=== PATIENT | female | born 1975 | race Two or more races ===

== ENCOUNTER 2022-04-05 12:28 | Emergency (ER) | payer MEDICAID, OTHER ==
[~2022-04-05] VITALS: Ht 165.1 cm; Wt 124.7 kg
[2022-04-05 13:35] VITALS: BP 144/79
[2022-04-05] MEDS ORDERED: PRED20TA2 PO (14:57)
[2022-04-05] MEDS ORDERED: NAPR500T31 PO (14:57)
== END 2022-04-05 15:01 | disposition home or self-care (01) ==
LOC: ER 12:28
DX: S02.2XXA Fracture of nasal bones, initial encounter for closed fracture (principal); I10 Essential (primary) hypertension; Z90.49 Acquired absence of other specified parts of digestive tract; W22.8XXA Striking against or struck by other objects, initial encounter; Y93.89 Activity, other specified; Y92.89 Other specified places as the place of occurrence of the external cause; Y99.8 Other external cause status
CPT/HCPCS: 70160

== ENCOUNTER 2023-04-16 08:46 | Emergency (ER) | payer MEDICAID ==
[~2023-04-16] VITALS: Ht 165.1 cm; Wt 133.7 kg
[~2023-04-16 08:46] MED LIST: NAPR500T31 PO; PRED20TA2 PO
[2023-04-16 08:53] VITALS: BP 136/68
[2023-04-16] MEDS ORDERED: PRED20TA2 PO (10:10)
[2023-04-16] MEDS ORDERED: IBUP800T27 PO (10:10)
== END 2023-04-16 10:55 | disposition home or self-care (01) ==
LOC: ER 08:46
DX: G56.03 Carpal tunnel syndrome, bilateral upper limbs (principal); I10 Essential (primary) hypertension; Z90.49 Acquired absence of other specified parts of digestive tract; Z98.890 Other specified postprocedural states

== ENCOUNTER 2023-11-25 13:17 | Emergency (ER) | payer MEDICAID ==
[~2023-11-25] VITALS: Ht 165.1 cm; Wt 138.8 kg
[~2023-11-25 13:17] MED LIST changes: +IBUP-1456 PO; +NAPR-746 PO; -NAPR500T31 PO
[2023-11-25] MEDS ORDERED: KETOROLAC TROMETH 60MG/2ML VIAL IM ONE (16:00)
[2023-11-25 16:08] VITALS: BP 161/70; PULSE 78; RESP 16; TEMP 98.8; O2SAT 97
[2023-11-25] MEDS ORDERED: DICL1GEL59 EX (17:21)
[2023-11-25] MEDS ORDERED: MELO-335 PO (17:21)
[2023-11-25] MEDS ORDERED: ACET500T58 PO (17:21)
== END 2023-11-25 17:21 | disposition home or self-care (01) ==
LOC: ER 13:17
DX: M23.8X2 Other internal derangements of left knee (principal); I10 Essential (primary) hypertension; Z98.890 Other specified postprocedural states; Z79.899 Other long term (current) drug therapy
CPT/HCPCS: 73562; 96372; 99283; J1885

== ENCOUNTER 2024-11-19 12:54 | Emergency (ER) | payer MEDICAID ==
[~2024-11-19] VITALS: Ht 165.1 cm; Wt 141.9 kg
[~2024-11-19 12:54] MED LIST changes: +ACET500T58 PO; +DICL1GEL59 EX; +MELO15TA29 PO
--- NOTE | 2024-11-19 13:44 | ED.PDOC ---
General HPI Comments 49 y.o female presents to the ED for a chief complaint of right sided flank pain that started one week ago. Patient describes pain as sharp, constant, non radiating and worsens with movement, especially twisting. Patient denies any hematuria, dysuria, fever, chills, abdominal pain, nausea, vomiting, or history of kidney and/or kidney disease. Chief Complaint: Flank Pain Time Seen by MD: 13:16 Primary Care Provider: WILL Latham notes: Nurses Notes, Medications, Allergies Allergies: Coded Allergies: NO KNOWN ALLERGIES (Unverified , 04/05/22) Home Meds Active Scripts Diclofenac Sodium (Topical) (Voltaren Arthritis Pain) 1 % Gel, 1 % EX QID for 30 Days, #50 GRAMS 0 Refills Prov:EMILEE JACKSON CDL DEDICATED TRUCK DRIVER 11/25/23 Acetaminophen (Acetaminophen) 500 Mg Tab, 1000 MG PO TIDP PRN for 30 Days, #180 TAB 0 Refills Prov:EMILEE JACKSON CDL DEDICATED TRUCK DRIVER 11/25/23 Meloxicam (Meloxicam) 15 Mg Tab, 15 MG PO DAILY for 30 Days, #30 TAB 0 Refills Prov:MEILEE JACKSON CDL DEDICATED TRUCK DRIVER 11/25/23 Prednisone (Prednisone) 20 Mg Tab, 40 MG PO DAILY, #20 MG Prov:RJ BARCENAS 04/16/23 Ibuprofen (Ibuprofen) 800 Mg Tab, 1 TAB PO TID, #30 TAB Prov:RJ BARCENAS 04/16/23 Naproxen (Naproxen) 500 Mg Tab, 500 MG PO BID, #30 TAB Prov:RJ BARCENAS 04/05/22 Prednisone (Prednisone) 20 Mg Tab, 60 MG PO DAILY for 5 Days, #15 MG Prov:RJ BARCENAS 04/05/22 Information Source: Patient Mode of Arrival: Ambulatory Severity: Moderate Timing: Weeks (1) Duration: Since onset Onset: Spontaneous Symptoms: None History of: None Location: (R) Flank Modifying factors: None associated signs and symptoms: Flank Pain Past Medical History PAST MEDICAL HISTORY: HTN Surgical History: Cholecystectomy, SPORTS INFORMATION DIRECTOR History: No Pertinent SPORTS INFORMATION DIRECTOR History Family History Family History: Reviewed,noncontributory to illness Social History Smoker: Non-Smoker Alcohol: Denies ETOH Use Drugs: Denies Drug Use Lives In: Home Constitutional: denies: chills, diaphoresis, fatigue, fever, malaise, sweats, weakness, others EENTM: denies: blurred vision, double vision, ear bleeding, ear discharge, ear drainage, ear pain, ear ringing, eye pain, eye redness, hearing loss, mouth pain, mouth swelling, nasal discharge, nose bleeding, nose congestion, nose pain, photophobia, tearing, throat pain, throat swelling, voice changes, others Respiratory: denies: cough, hemoptysis, orthopnea, SOB at rest, shortness of breath, SOB with excertion, stridor, wheezing, others Cardiovascular: denies: chest pain, dizzy spells, diaphoresis, Dyspnea on exertion, edema, irregular heart beat, left arm pain, lightheadedness, palpitations, PND, syncope, others Gastrointestinal: denies: abdomen distended, abdominal pain, blood streaked bowels, constipated, diarrhea, dysphagia, difficulty swallowing, hematemesis, melena, nausea, poor appetite, poor fluid intake, rectal bleeding, rectal pain, vomiting, others Genitourinary: reports: flank pain; denies: abnormal vagina bleeding, burning, dyspareunia, dysuria, frequency, hematuria, incontinence, pain, , vagina discharge, urgency, others Neurological: denies: dizziness, fainting, headache, left sided numbness, left sided weakness, numbness, paresthesia, pre-existing deficit, right sided numb ness, right sided weakness, seizure, speech problems, tingling, tremors, weakness, others Musculoskeletal: denies: back pain, gout, joint pain, joint swelling, muscle pain, muscle stiffness, neck pain, others Integumetry: denies: bruises, change in color, change in hair/nails, dryness, laceration, lesions, lumps, rash, wounds, others Allergic/Immunocompromised: denies: Difficulty Healing, Frequent Infections, Hives, Itching, others Hematologic/Lymphatic: denies: anemia, blood clots, easy bleeding, easy bruising, swollen glands, others Endocrine: denies: excessive hunger, excessive sweating, excessive thirst, excessive urination, flushing, intolerance to cold, intolerance to heat, unexplained weight gain, unexplained weight loss, others Psychiatric: denies: anxiety, bipolar disorder, depression, hopeless, panic disorder, schizophrenia, sleepless, suicidal, others All Other Systems: Reviewed and Negative Physical Exam General Appearance: No Apparent Distress, Normal HEENT: Normal ENT Inspection, Pharynx Normal, TMs Normal Neck: Full Range of Motion, Non-Tender, Normal, Normal Inspection Respiratory: Chest Non-Tender, Lungs Clear, No Accessory Muscle Use, No Respiratory Distress, Normal Breath Sounds Cardiovascular: No Edema, No JVD, No Murmur, No Gallop, Normal Peripheral Pulses, Regular Rate/Rhythm Breast Exam: Deferred Gastrointestinal: No Organomegaly, Non Tender, No Pulsatile Mass, Normal Bowel Sounds, Soft Genitalia: Deferred Pelvic: Deferred Rectal: Deferred Extremities: No calf tenderness, Normal capillary refill, Normal inspection, Normal range of motion, Non-tender, No pedal edema Musculoskeletal : Location: Right Extremity Location: Other (flank ) Apperance: Tenderness: Moderate Neurologic: Alert, bioinformatics assistant II-XII nml as Tested, No Motor Deficits, Normal Affect, Normal Mood, No Sensory Deficits Cerebellar Function: Normal Reflexes: Normal Skin: Dry, Normal Color, Warm Lymphatic: No Adenopathy Was a procedure done? Was a procedure done?: No Differential Diagnosis Kidney stone (Female): Musculoskeletal pain, Ovarian torsion, Pancreatitis, Pyelonephritis, Renal failure, Strain, Urolithiasis Urinary Problem (Female): Impaction, PID, Pyelonephritis, Urolithiasis, UTI, Vaginitis X-Ray, Labs, Meds, VS Vital Signs Date Time Temp Pulse Resp B/P (MAP) Pulse Ox O2 Delivery O2 Flow Rate FiO2 11/19/24 13:30 98.4 80 18 150/62 (91) 96 Lab Test 11/19/24 14:26 Range/Units White Blood Count 11.9 H 4.4-10.8 10^3/uL Red Blood Count 4.77 4.0-5.20 10^6/uL Hemoglobin 12.2 12.2-16.2 g/dL Hematocrit 37.5 36.0-46.0 % Mean Corpuscular Volume 78.6 L 80.0-100.0 fL Mean Corpuscular Hemoglobin 25.6 L 28.0-32.0 pg Mean Corpuscular Hemoglobin Concent 32.6 32.0-36.0 g/dL Red Cell Distribution Width 15.0 H 11.8-14.3 % Platelet Count 329 140-450 10^3/uL Mean Platelet Volume 7.4 6.9-10.8 fL Neutrophils (%) (Auto) 76.2 37.0-80.0 % Lymphocytes (%) (Auto) 17.5 10.0-50.0 % Monocytes (%) (Auto) 3.3 0.0-12.0 % Eosinophils (%) (Auto) 2.3 0.0-7.0 % Basophils (%) (Auto) 0.7 0.0-2.0 % Neutrophils # (Auto) 9.1 H 1.6-8.6 10 ^3/uL Lymphocytes # (Auto) 2.1 0.4-5.4 10 ^3/uL Monocytes # (Auto) 0.4 0-1.3 10 ^3/uL Eosinophils # (Auto) 0.3 0-0.8 10 ^3/uL Basophils # (Auto) 0.1 0-0.2 10 ^3/uL Nucleated Red Blood Cells 0.0 % Prothrombin Time 10.3 9.3-11.8 sec Prothrombin Time INR 0.97 0.9-1.15 Activated Partial Thromboplast Time 26.9 24.5-34.5 SEC Sodium Level 140 136-145 mmol/L Potassium Level 3.9 3.5-5.1 mmol/L Chloride Level 105 98-107 mmol/L Carbon Dioxide Level 28 20-31 mmol/L Anion Gap 7 5-15 Blood Urea Nitrogen 7 L 9-23 mg/dL Creatinine 0.77 0.550-1.02 mg/dL Glomerular Filtration Rate Calc 96 >90 mL/min BUN/Creatinine Ratio 9.1 L 10.0-20.0 Serum Glucose 95 74-106 mg/dL Lactic Acid Level 1.1 0.4-2.0 mmol/L Calcium Level 9.8 8.7-10.4 mg/dL Total Bilirubin 0.3 0.2-1.0 mg/dL Aspartate Amino Transferase (AST) 14 13-40 U/L Alanine Aminotransferase (ALT) 22 7-40 U/L Alkaline Phosphatase 119 H 46-116 U/L Total Protein 7.5 5.7-8.2 g/dL Albumin 4.4 3.2-4.8 g/dL Beta HCG, Quantitative 2.0 1.5-4.2 mIU/mL X-Ray, Labs, Meds, VS Comment This 49-year-old female presents secondary to a few day history of right lower back pain radiates laterally. She has no other complaints of dysuria, urine frequency, fever, chills, sweats, nausea or vomiting. Her periods benign. My review of the CT shows copious amounts of stool throughout the colon. This may be the cause of her discomfort. I will discharge the patient home with milk of magnesia. She was asked to very well hydrated to keep her urine clear. She should he had high-fiber diet. Time of 1ST Reevaluation: 13:43 Reevaluation 1ST: Unchanged Time of 2ND Reevaluation: 16:18 Patient Education/Counseling: Diagnosis, Treatment Family Education/Counseling: No Family Present Additional Information I reviewed the following notes from patient's past medical encounters: 11/18/24- intractable abdominal pain The following tests were ordered, and results were reviewed by me: (Labs, XY, EKG): CMP, CBC, Lactic acid, UA, blood cultures, PtPTT, Beta HCG Additional Information was gathered from interviewing the following independent historians: (Family, Other Providers, EMT) I reviewed and agreed with the following test results read by other providers: (X-Ray, CT, US): CT I discussed treatment and results with medical personnel and: (Consultants, Family): None Departure 1 Departure Time of Disposition: 16:19 Impression: Primary Impression: Flank pain Additional Impression: Constipation Disposition: 01 HOME / SELF CARE / HOMELESS Condition: Good e-Prescriptions Magnesium Hydroxide (Milk of Magnesia 400 mg/5Ml) 1 Marlen Marlen 1 MARLEN PO BID PRN for 10 Days, #100 ML Prov: LAMBERTO HERNANDEZ MD 11/19/24 Critical Care Note Critical Care Time?: No Stability Stability form required: No I personally scribed for LAMBERTO HERNANDEZ MD ([email or web address]) on 11/19/24 at 13:44. Electronically submitted by Kassandra Mckeon ([employer]). I personally scribed for LAMBERTO HERNANDEZ MD ([email or web address]) on 11/19/24 at 15:17. Electronically submitted by Kassandra Mckeon ([employer]). LAMBERTO HERNANDEZ MD Nov 19, 2024 13:44
[2024-11-19 14:41] LABS: Eosinophils # (auto) 0.3 10 ^3/uL (0-0.8); Eosinophils % (auto) 2.3 % (0.0-7.0); Hematocrit 37.5 % (36.0-46.0); Hemoglobin 12.2 g/dL (12.2-16.2); Mean Corpuscular Hemoglobin 25.6 pg (28.0-32.0); Mean Corpuscular Hgb Conc. 32.6 g/dL (32.0-36.0)
[2024-11-19 14:42] LABS: Basophils # (auto) 0.1 10 ^3/uL (0-0.2); Basophils % (auto) 0.7 % (0.0-2.0); Lymphocytes # (auto) 2.1 10 ^3/uL (0.4-5.4); Lymphocytes % (auto) 17.5 % (10.0-50.0); Mean Corpuscular Volume 78.6 fL (80.0-100.0); Monocytes # (auto) 0.4 10 ^3/uL (0-1.3); Monocytes % (auto) 3.3 % (0.0-12.0); Neutrophils # (auto) 9.1 10 ^3/uL (1.6-8.6); Neutrophils % (auto) 76.2 % (37.0-80.0); Platelet Count (auto) 329 10^3/uL (140-450); Red Blood Cells 4.77 10^6/uL (4.0-5.20); White Blood Cell 11.9 10^3/uL (4.4-10.8)
[2024-11-19 15:06] LABS: INR 0.97 (0.9-1.15); Partial Thromboplastin Time 26.9 SEC (24.5-34.5); Prothrombin Time 10.3 sec (9.3-11.8)
[2024-11-19 15:14] LABS: Alanine Aminotransferase 22 U/L (7-40); Anion Gap 7 (5-15); BUN/Creatinine Ratio 9.1 (10.0-20.0); Calcium 9.8 mg/dL (8.7-10.4); Carbon Dioxide 28 mmol/L (20-31); Chloride 105 mmol/L (98-107); Glucose 95 mg/dL (74-106); Potassium 3.9 mmol/L (3.5-5.1); Sodium 140 mmol/L (136-145)
[2024-11-19 15:15] LABS: Albumin 4.4 g/dL (3.2-4.8); Aspartate Aminotransferase 14 U/L (13-40); Total Protein 7.5 g/dL (5.7-8.2)
[2024-11-19 15:16] LABS: Alkaline Phosphatase 119 U/L (46-116); Bilirubin, Total 0.3 mg/dL (0.2-1.0); Blood Urea Nitrogen 7 mg/dL (9-23)
--- NOTE | 2024-11-19 15:28 | DVH ---
Exam: CT CT AB PEL WO CON-NO ORAL OR IV History: right flank pain pyelo Comparison Study: 05/11/2024 TECHNIQUE: Multidetector CT of the abdomen was performed from lung bases to pubic symphysis. Imaging was performed without IV contrast. Axial, coronal and sagittal multiplanar reformats were obtained fr om the axial data set by the technologist. Radiation Dose Information: CT Dose: CTDI volume is 27.88 mGy. Dose-length product is 1546.44 mGy*cm FINDINGS: Evaluation of solid organs is limited due to lack of intravenous contrast use. Findings: Lung Bases: No acute or significant lung base finding. Normal heart size. No pleural or pericardial effusion. Liver: The liver is normal in size. No focal lesions. Gallbladder and Biliary Tree: Unremarkable Spleen: Unremarkable Pancreas: The pancreas is grossly normal in appearance. Adrenal Glands: Unremarkable Kidneys: Kidneys are grossly normal without calculi or hydronephrosis. Bladder: Grossly unremarkable for degree of distention. Bowel: The stomach is grossly normal in appearance. Small bowel and colon are normal in caliber and d istribution. The appendix is not visualized; however, no secondary findings of acute appendicitis id entified. Ascites: Absent Lymphadenopathy: No mesenteric, retroperitoneal or periportal lymphadenopathy. Abdominal Wall and Mesentery: Unremarkable. Vasculature: The visualized abdominal aorta is normal in size and caliber. Evaluation of abdominal a nd pelvic vessels is limited due to lack of intravenous contrast. Pelvic Organs: Unremarkable Musculoskeletal: No aggressive focal bony lesions, acute fractures or dislocation. Soft tissues: Unremarkable IMPRESSION: 1. No nephrolithiasis or hydronephrosis bilaterally. 2. No ureteral dilatation. 3. No Chloe renal collections bilaterally. 4. Gallbladder has been surgically removed. 5. No findings of bowel obstruction. Radiation optimization: All CT scans at this facility use at least one of these dose optimization te chniques: automated exposure control mA and/or kV adjustment per patient size (includes targeted exa ms where dose is matched to clinical indication) or iterative reconstruction.
[2024-11-19] MEDS ORDERED: MAGNSUS48 PO (16:20)
[2024-11-19 16:41] VITALS: BP 160/85; PULSE 72; RESP 16; TEMP 98; O2SAT 97
[2024-11-19 17:11] LABS: Urine Bacteria FEW /hpf (None Seen); Urine Blood Negative /uL (Negative); Urine Clarity Clear (Clear); Urine Color Light-Yellow (Yellow); Urine Mucus FEW (None Seen); Urine Protein, UAD Negative (Negative); Urine Specific Gravity 1.021 (1.001-1.035); Urine Urobilinogen Normal (Negative); Urine WBC 1 /hpf (0 - 5)
== END 2024-11-19 16:44 | disposition home or self-care (01) ==
LOC: ER 12:54
DX: K59.00 Constipation, unspecified (principal); R10.2 Pelvic and perineal pain; I10 Essential (primary) hypertension; Z79.899 Other long term (current) drug therapy; Z90.49 Acquired absence of other specified parts of digestive tract; Z98.890 Other specified postprocedural states
CPT/HCPCS: 36415; 74176; 80053; 81001; 83605; 84702; 85025; 85610; 85730; 87040; 87086

== ENCOUNTER 2025-03-25 10:43 | Emergency (ER) | payer MEDICAID ==
[~2025-03-25] VITALS: Ht 165.1 cm; Wt 145.1 kg
[~2025-03-25 10:43] MED LIST changes: +MAGNSUS48 PO
--- NOTE | 2025-03-25 11:51 | DVH ---
CLINICAL INDICATION: PAIN, NO INJURY TECHNIQUE: XY L KNEE 3V XRAY Comparison: XY L KNEE 3V XRAY on DOS: 11/25/23 FINDINGS/IMPRESSION: : There is no evidence of acute fracture or dislocation. Soft tissues are unremarkable.
[2025-03-25 11:55] VITALS: BP 144/57; PULSE 92; RESP 18; TEMP 98.8; O2SAT 97
--- NOTE | 2025-03-25 12:10 | ED.PDOC ---
Musculoskeletal HPI Comments A 49 YEAR OLD FEMALE PRESENTS TO THE ED WITH COMPLAINT OF LEFT KNEE PAIN. PATIENT STATES SHE HAS BEEN EXPERIENCING LEFT KNEE PAIN THAT IS WORSE WITH MOVEMENT FOR THE PAST 5 DAYS. PATIENT NOTES SHE HAS A JOB WHERE SHE WALKS EVERY DAY. PATIENT DENIES FEVER, CHILLS, SHORTNESS OF BREATH, CHEST PAIN, ABDOMINAL PAIN, NAUSEA, VOMITING, HEADACHE, OR OTHER COMPLAINTS. NO OTHER SYMPTOMS OR MODIFYING FACTORS AT THIS TIME. PATIENT IS ALERT, ORIENTED X 4, AND HAS STEADY GAIT. Chief Complaint: Lower Extremity Time Seen by MD: 11:18 Primary Care Provider: WILL Reviewed Notes: Nurses Notes, Medications, Allergies Allergies: Coded Allergies: NO KNOWN ALLERGIES (Unverified , 04/05/22) Home Meds Active Scripts Ibuprofen (Ibuprofen) 800 Mg Tab, 1 TAB PO TID, #30 TAB Prov:RJ BARCENAS 03/25/25 Magnesium Hydroxide (Milk of Magnesia 400 mg/5Ml) 1 Marlen Marlen, 1 MARLEN PO BID PRN for 10 Days, #100 ML Prov:LAMBERTO HERNANDEZ MD 11/19/24 Diclofenac Sodium (Topical) (Voltaren Arthritis Pain) 1 % Gel, 1 % EX QID for 30 Days, #50 GRAMS 0 Refills Prov:EMILEE JACKSON NP 11/25/23 Acetaminophen (Acetaminophen) 500 Mg Tab, 1000 MG PO TIDP PRN for 30 Days, #180 TAB 0 Refills Prov:EMILEE JACKSON NP 11/25/23 Meloxicam (Meloxicam) 15 Mg Tab, 15 MG PO DAILY for 30 Days, #30 TAB 0 Refills Prov:EMILEE JACKSON NP 11/25/23 Prednisone (Prednisone) 20 Mg Tab, 40 MG PO DAILY, #20 MG Prov:RJ BARCENAS 04/16/23 Ibuprofen (Ibuprofen) 800 Mg Tab, 1 TAB PO TID, #30 TAB Prov:RJ BARCENAS 04/16/23 Naproxen (Naproxen) 500 Mg Tab, 500 MG PO BID, #30 TAB Prov:RJ BARCENAS 04/05/22 Prednisone (Prednisone) 20 Mg Tab, 60 MG PO DAILY for 5 Days, #15 MG Prov:RJ BARCENAS 04/05/22 Information Source: Patient Mode of Arrival: Ambulatory Location: Left Extremity Location: Knee Timing: Days Prehospital treatment: None Severity: Moderate Able to Move Extremity: Yes Bear Weight: Fully Pain: Moderate Mechanism: Blunt Trauma, Spontaneous Circumstances: Spontaneous Onset of Symptoms: Spontaneous Symptoms: Pain DVT Risk Factors: NONE Last Tetanus: Unknown Associated signs and symptoms: Knee pain Past Medical History PAST MEDICAL HISTORY: HTN Surgical History: Cholecystectomy, ANIMAL DAYCARE PROVIDER History: No Pertinent ANIMAL DAYCARE PROVIDER History Family History Family History: Reviewed,noncontributory to illness Social History Smoker: Non-Smoker Alcohol: Denies ETOH Use Drugs: Denies Drug Use Lives In: Home Constitutional: denies: chills, diaphoresis, fatigue, fever, malaise, sweats, weakness, others EENTM: denies: blurred vision, double vision, ear bleeding, ear discharge, ear drainage, ear pain, ear ringing, eye pain, eye redness, hearing loss, mouth pain, mouth swelling, nasal discharge, nose bleeding, nose congestion, nose pain, photophobia, tearing, throat pain, throat swelling, voice changes, others Respiratory: denies: cough, hemoptysis, orthopnea, SOB at rest, shortness of breath, SOB with excertion, stridor, wheezing, others Cardiovascular: denies: chest pain, dizzy spells, diaphoresis, Dyspnea on exertion, edema, irregular heart beat, left arm pain, lightheadedness, palpitations, PND, syncope, others Gastrointestinal: denies: abdomen distended, abdominal pain, blood streaked bowels, constipated, diarrhea, dysphagia, difficulty swallowing, hematemesis, melena, nausea, poor appetite, poor fluid intake, rectal bleeding, rectal pain, vomiting, others Genitourinary: denies: abnormal vagina bleeding, burning, dyspareunia, dysuria, flank pain, frequency, hematuria, incontinence, pain, , vagina discharge, urgency, others Neurological: denies: dizziness, fainting, headache, left sided numbness, left sided weakness, numbness, paresthesia, pre-existing deficit, right sided numbness, right sided weakness, seizure, speech problems, tingling, tremors, weakness, others Musculoskeletal: reports: joint pain, joint swelling, others (LEFT KNEE PAIN); denies: back pain, gout, muscle pain, muscle stiffness, neck pain Integumetry: denies: bruises, change in color, change in hair/nails, dryness, laceration, lesions, lumps, rash, wounds, others Allergic/Immunocompromised: denies: Difficulty Healing, Frequent Infections, Hives, Itching, others Hematologic/Lymphatic: denies: anemia, blood clots, easy bleeding, easy bruising, swollen glands, others Endocrine: denies: excessive hunger, excessive sweating, excessive thirst, excessive urination, flushing, intolerance to cold, intolerance to heat, unexplained weight gain, unexplained weight loss, others Psychiatric: denies: anxiety, bipolar disorder, depression, hopeless, panic disorder, schizophrenia, sleepless, suicidal, others All Other Systems: Reviewed and Negative Physical Exam General Appearance: No Apparent Distress, Obese HEENT: Normal ENT Inspection, PERRL/EOMI, Pharynx Normal, TMs Normal Neck: Full Range of Motion, Non-Tender, Normal, Normal Inspection Respiratory: Chest Non-Tender, Lungs Clear, No Accessory Muscle Use, No Respiratory Distress, Normal Breath Sounds Cardiovascular: No Edema, No JVD, No Murmur, No Gallop, Normal Peripheral Pulses, Regular Rate/Rhythm Breast Exam: Deferred Gastrointestinal: No Organomegaly, Non Tender, No Pulsatile Mass, Normal Bowel Sounds, Soft Genitalia: Deferred Pelvic: Deferred Rectal: Deferred Extremities: No calf tenderness, Normal capillary refill, Normal range of motion, No pedal edema, Tender (AND MILD SWELLING ON LEFT KNEE, NO BONY TENDERNESS AND DEFORMITY, NO REDNESS AND DEFORMITY. ) Musculoskeletal : Apperance: Normal Neurologic: Alert, vegetable loader machine operator II-XII nml as Tested, No Motor Deficits, Normal Affect, Normal Mood, No Sensory Deficits Cerebellar Function: Normal Reflexes: Normal Skin: Dry, Normal Color, Warm Peripheral Pulses: 2+ carotid (R), 2+ carotid (L), 2+ dorsalis pedis (R), 2+ dorsalis pedis (L) Lymphatic: No Adenopathy Was a procedure done? Was a procedure done?: No Differential Diagnosis EXT Differential Diagnosis: Sprain, DJD, Strain, Arthritis, Bursitis X-Ray, Labs, Meds, VS Vital Signs Date Time Temp Pulse Resp B/P (MAP) Pulse Ox O2 Delivery O2 Flow Rate FiO2 03/25/25 11:55 92 18 97 Room Air 03/25/25 11:55 98.8 92 17 144/57 (86) 97 98.8 03/25/25 10:58 98.8 92 18 144/57 86 97 98.8 Current Medications Medications (Trade) Dose Ordered Sig/Teetee Route Start Time Stop Time Status Last Admin Ketorolac Tromethamine (Toradol Injection) 60 mg ONCE ONCE IM 03/25/25 12:15 03/25/25 12:16 DC 03/25/25 12:17 CLINICAL INDICATION: PAIN, NO INJURY TECHNIQUE: XY L KNEE 3V XRAY Comparison: XY L KNEE 3V XRAY on DOS: 11/25/23 FINDINGS/IMPRESSION: : There is no evidence of acute fracture or dislocation. Soft tissues are unremarkable. ATED BY: JOVAN MCPHERSON MD DICTATED DATE/TIME: 03/25/25 1148 SIGNED BY: JOVAN MCPHERSON MD SIGNED DATE/TIME: 03/25/25 1148 CC: X-Ray, Labs, Meds, VS Comment EXTERNAL MEDICAL RECORDS REVIEWED: [NONE] INDEPENDENT HISTORIANS: [NONE] SOCIAL DETERMINANTS OF HEALTH: [NONE] LABS ORDERED: NONE REVIEWED AND INTERPRETED RESULTS: NONE IMAGING ORDERED: XR KNEE LT TREATMENTS ORDERED: TORADOL 60MG IM PROCEDURES PERFORMED: NONE CRITICAL CARE TIME: NONE I HAVE DISCUSSED THE PATIENT WITH THE ATTENDING PHYSICIAN DR. ROSAS AND HE AGREES WITH THE PATIENT'S PLAN OF CARE AND DISPOSITION. BASED ON HISTORY OF PRESENT ILLNESS, AND PHYSICAL EXAM, PATIENT WILL BE DISCHARGED HOME. DISCUSSED PLAN FOR DISCHARGE HOME WITH RX [IBUPROFEN 800 MG]. MEDICATION WARNINGS GIVEN. SHARED DECISION MAKING: PATIENT INSTRUCTED TO FOLLOW UP WITH PRIMARY CARE PROVIDER IN 1-2 DAYS FOR RE-EVALUATION OF SYMPTOMS. PATIENT VERBALIZES UNDERSTANDING TO RETURN TO ED FOR NEW OR WORSENING SYMPTOMS OR IF FOLLOW UP WITH PCP CANNOT BE OBTAINED. PATIENT FEELS COMFORTABLE GOING HOME AT THIS TIME. ALL QUESTIONS ADDRESSED AT TIME OF DISCHARGE. Images Reviewed?: Images reviewed and evaluated by me Time of 1ST Reevaluation: 12:28 Reevaluation 1ST: Improved Patient Education/Counseling: Diagnosis, Treatment, Need For Follow Up Family Education/Counseling: Diagnosis, Treatment, Need For Follow Up Medical Screening: No EMC Exist At This Time Departure 1 Departure Time of Disposition: 12:28 Impression: Primary Impression: Internal derangement of left knee Additional Impression: Morbid obesity Disposition: 01 HOME / SELF CARE / HOMELESS Condition: Stable Additional Instructions: FOLLOW-UP WITH PCP IN 1 TO 2 DAYS FOR MRI STUDY. TAKE MEDICATIONS PRESCRIBED. RETURN TO ED FOR ANY NEW OR WORSENING SYMPTOMS. e-Prescriptions Ibuprofen (Ibuprofen) 800 Mg Tab 1 TAB PO TID, #30 TAB Prov: RJ BARCENAS 03/25/25 Discharged With: Self Critical Care Note Critical Care Time?: No Stability Stability form required: No I personally scribed for RJ BARCENAS ([email or web address]) on 03/25/25 at 12:10. Electronically submitted by Carlos Thrasher ([email or web address]). RJ BARCENAS March 25, 2025 12:10
[2025-03-25] MEDS: KETOROLAC TROMETH 60MG/2ML VIAL IM ONE (12:17)
== END 2025-03-25 12:44 | disposition home or self-care (01) ==
LOC: ER 10:43
DX: M23.92 Unspecified internal derangement of left knee (principal); E66.01 Morbid (severe) obesity due to excess calories; I10 Essential (primary) hypertension; Z79.899 Other long term (current) drug therapy; Z90.49 Acquired absence of other specified parts of digestive tract; Z98.890 Other specified postprocedural states
CPT/HCPCS: 73562; 96372; 99283; J1885

== ENCOUNTER 2025-08-08 09:01 | Emergency (ER) | payer MEDICAID ==
[~2025-08-08] VITALS: Ht 165.1 cm; Wt 143.6 kg
[2025-08-08 09:07] VITALS: BP 117/62; PULSE 72; RESP 18; TEMP 98.2; O2SAT 95
--- NOTE | 2025-08-08 09:30 | ED.PDOC ---
Musculoskeletal HPI Comments 49-year-old female presents to the ER with the with no prior MHx associated with a chief complaint of LE. Patient reports on having left knee pain which worsens with a walking or bending. Denies any trauma or injury to the area at the moment. Chief Complaint: Lower Extremity Time Seen by MD: 09:30 Primary Care Provider: WILL Latham Notes: Nurses Notes, Medications, Allergies Allergies: Coded Allergies: NO KNOWN ALLERGIES (Unverified , 04/05/22) Home Meds Active Scripts Ibuprofen (Ibuprofen) 800 Mg Tab, 1 TAB PO TID, #30 TAB Prov:RJ BARCENAS 03/25/25 Magnesium Hydroxide (Milk of Magnesia 400 mg/5Ml) 1 Marlen Marlen, 1 MARLEN PO BID PRN for 10 Days, #100 ML Prov:LAMBERTO HERNANDEZ MD 11/19/24 Diclofenac Sodium (Topical) (Voltaren Arthritis Pain) 1 % Gel, 1 % EX QID for 30 Days, #50 GRAMS 0 Refills Prov:EMILEE JACKSON SCREW MACHINE OPERATOR 11/25/23 Acetaminophen (Acetaminophen) 500 Mg Tab, 1000 MG PO TIDP PRN for 30 Days, #180 TAB 0 Refills Prov:EMILEE JACKSON SCREW MACHINE OPERATOR 11/25/23 Meloxicam (Meloxicam) 15 Mg Tab, 15 MG PO DAILY for 30 Days, #30 TAB 0 Refills Prov:EMILEE JACKSON NP 11/25/23 Prednisone (Prednisone) 20 Mg Tab, 40 MG PO DAILY, #20 MG Prov:RJ BARCENAS 04/16/23 Ibuprofen (Ibuprofen) 800 Mg Tab, 1 TAB PO TID, #30 TAB Prov:RJ BARCENAS 04/16/23 Naproxen (Naproxen) 500 Mg Tab, 500 MG PO BID, #30 TAB Prov:RJ BARCENAS 04/05/22 Prednisone (Prednisone) 20 Mg Tab, 60 MG PO DAILY for 5 Days, #15 MG Prov:RJ BARCENAS 04/05/22 Information Source: Patient Mode of Arrival: Ambulatory Location: Left Extremity Location: Knee Timing: Came on: Gradually Prehospital treatment: None Severity: Moderate Able to Move Extremity: No Bear Weight: Limited Pain: Moderate Hand Dominance: Right Mechanism: Spontaneous Circumstances: Spontaneous Onset of Symptoms: Spontaneous Symptoms: Pain DVT Risk Factors: NONE Associated signs and symptoms: Knee pain Past Medical History PAST MEDICAL HISTORY: HTN Surgical History: Cholecystectomy, [employer]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 History Family History Family History: Reviewed,noncontributory to illness, Unknown Social History Smoker: Non-Smoker Alcohol: Denies ETOH Use Drugs: Denies Drug Use Lives In: Home Constitutional: denies: chills, diaphoresis, fatigue, fever, malaise, sweats, weakness, others EENTM: denies: blurred vision, double vision, ear bleeding, ear discharge, ear drainage, ear pain, ear ringing, eye pain, eye redness, hearing loss, mouth pain, mouth swelling, nasal discharge, nose bleeding, nose congestion, nose p ain, photophobia, tearing, throat pain, throat swelling, voice changes, others Respiratory: denies: cough, hemoptysis, orthopnea, SOB at rest, shortness of breath, SOB with excertion, stridor, wheezing, others Cardiovascular: denies: chest pain, dizzy spells, diaphoresis, Dyspnea on exertion, edema, irregular heart beat, left arm pain, lightheadedness, palpitations, PND, syncope, others Gastrointestinal: denies: abdomen distended, abdominal pain, blood streaked bowels, constipated, diarrhea, dysphagia, difficulty swallowing, hematemesis, melena, nausea, poor appetite, poor fluid intake, rectal bleeding, rectal pain, vomiting, others Genitourinary: denies: abnormal vagina bleeding, burning, dyspareunia, dysuria, flank pain, frequency, hematuria, incontinence, pain, , vagina discharge, urgency, others Neurological: denies: dizziness, fainting, headache, left sided numbness, left sided weakness, numbness, paresthesia, pre-existing deficit, right sided numbness, right sided weakness, seizure, speech problems, tingling, tremors, weakness, others Musculoskeletal: reports: others (Left knee pain); denies: back pain, gout, joint pain, joint swelling, muscle pain, muscle stiffness, neck pain Integumetry: denies: bruises, change in color, change in hair/nails, dryness, laceration, lesions, lumps, rash, wounds, others Allergic/Immunocompromised: denies: Difficulty Healing, Frequent Infections, Hives, Itching, others Hematologic/Lymphatic: denies: anemia, blood clots, easy bleeding, easy bruising, swollen glands, others Endocrine: denies: excessive hunger, excessive sweating, excessive thirst, excessive urination, flushing, intolerance to cold, intolerance to heat, unexplained weight gain, unexplained weight loss, others Psychiatric: denies: anxiety, bipolar disorder, depression, hopeless, panic disorder, schizophrenia, sleepless, suicidal, others All Other Systems: Reviewed and Negative Physical Exam General Appearance: No Apparent Distress, Normal HEENT: Normal ENT Inspection, Pharynx Normal, TMs Normal Neck: Full Range of Motion, Non-Tender, Normal, Normal Inspection Respiratory: Chest Non-Tender, Lungs Clear, No Accessory Muscle Use, No Respiratory Distress, Normal Breath Sounds Cardiovascular: No Edema, No JVD, No Murmur, No Gallop, Normal Peripheral Pulses, Regular Rate/Rhythm Breast Exam: Deferred Gastrointestinal: No Organomegaly, Non Tender, No Pulsatile Mass, Normal Bowel Sounds, Soft Genitalia: Deferred Pelvic: Deferred Rectal: Deferred Extremities: No calf tenderness, Normal capillary refill, Normal inspection, Normal range of motion, Non-tender, No pedal edema Musculoskeletal : Apperance: Normal Neurologic: Alert, ultrasonic seaming machine operator II-XII nml as Tested, No Motor Deficits, Normal Affect, Normal Mood, No Sensory Deficits Cerebellar Function: Normal Reflexes: Normal Skin: Dry, Normal Color, Warm Lymphatic: No Adenopathy Was a procedure done? Was a procedure done?: No Differential Diagnosis EXT Differential Diagnosis: N/A X-Ray, Labs, Meds, VS Vital Signs Date Time Temp Pulse Resp B/P (MAP) Pulse Ox O2 Delivery O2 Flow Rate FiO2 08/08/25 09:07 98.2 72 18 117/62 95 98.2 X-Ray, Labs, Meds, VS Comment 49-year-old female presents to the ER with the with no prior MHx associated with a chief complaint of LE. Time of 1ST Reevaluation: 10:00 Reevaluation 1ST: Unchanged Patient Education/Counseling: Diagnosis, Treatment, Prognosis Family Education/Counseling: No Family Present Departure 1 Departure Time of Disposition: 14:12 Impression: Primary Impression: Eloped from emergency department Disposition: 07 LEFT AWOL/ELOPED Condition: Poor Critical Care Note Critical Care Time?: No Stability Stability form required: No Heart Score Heart Score: Heart Score Response (Comments) Value History N/A 0 EKG N/A 0 Age N/A 0 Risk Factors N/A 0 Troponin N/A 0 Total 0 I personally scribed for EMILEE JACKSON NP ([email or web address]) on 08/08/25 at 09:29. Electronically submitted by Valentino Hickman ([email or web address]). EMILEE JACKSON NP Aug 08, 2025 09:29
--- NOTE | 2025-08-08 11:01 | DVH ---
CLINICAL INDICATION: Pain TECHNIQUE: 3 radiographic views of the left knee were obtained. Comparison: XY L KNEE 3V XRAY on DOS: 03/25/25, XY L KNEE 3V XRAY on DOS: 11/25/23 FINDINGS/IMPRESSION: There is no evidence of acute fracture or dislocation. The visualized joint space is well maintained. The alignment is anatomical. There is no radiopaque foreign body.
[2025-08-08] MEDS ORDERED: TRAM-626 PO (14:33)
--- NOTE | 2025-08-08 14:34 | ED.PDOC ---
Musculoskeletal HPI Comments 49-year-old female presents to the ER with a chief complaint of left knee pain and swelling. Patient reports on having experiencing left knee pain rating is 7/10 for the past two weeks, particularly when bending or walking. The pain is constant with a bending, and there is a sensation of swelling although no visible swelling is noted. They deny any recent injury to the knee and I have not heard any snapping, cracking, or popping sound. A similar issue occurred approximately three months ago which was suggested to be related to the ligaments. Per pain management the patient has been taking 600 mg of ibuprofen which provides some relief. However bear cautions both frequent use due to history of fatty liver. Denies any other symptoms of the moment. Chief Complaint: Lower Extremity Time Seen by MD: 09:30 Primary Care Provider: WILL Latham Notes: Nurses Notes, Medications, Allergies Allergies: Coded Allergies: NO KNOWN ALLERGIES (Unverified , 04/05/22) Home Meds Active Scripts Tramadol HCl (Tramadol HCl) 50 Mg Tab, 50 MG PO Q8HP PRN for 10 Days, #30 TAB 0 Refills Prov:EMILEE JACKSON NP 08/08/25 Ibuprofen (Ibuprofen) 800 Mg Tab, 1 TAB PO TID, #30 TAB Prov:RJ BARCENAS 03/25/25 Magnesium Hydroxide (Milk of Magnesia 400 mg/5Ml) 1 Marlen Marlen, 1 MARLEN PO BID PRN for 10 Days, #100 ML Prov:LAMBERTO HERNANDEZ MD 11/19/24 Diclofenac Sodium (Topical) (Voltaren Arthritis Pain) 1 % Gel, 1 % EX QID for 30 Days, #50 GRAMS 0 Refills Prov:EMILEE JACKSON NP 11/25/23 Acetaminophen (Acetaminophen) 500 Mg Tab, 1000 MG PO TIDP PRN for 30 Days, #180 TAB 0 Refills Prov:EMILEE JACKSON NP 11/25/23 Meloxicam (Meloxicam) 15 Mg Tab, 15 MG PO DAILY for 30 Days, #30 TAB 0 Refills Prov:EMILEE JACKSON NP 11/25/23 Prednisone (Prednisone) 20 Mg Tab, 40 MG PO DAILY, #20 MG Prov:RJ BARCENAS 04/16/23 Ibuprofen (Ibuprofen) 800 Mg Tab, 1 TAB PO TID, #30 TAB Prov:RJ BARCENAS 04/16/23 Naproxen (Naproxen) 500 Mg Tab, 500 MG PO BID, #30 TAB Prov:RJ BARCENAS 04/05/22 Prednisone (Prednisone) 20 Mg Tab, 60 MG PO DAILY for 5 Days, #15 MG Prov:RJ BARCENAS 04/05/22 Information Source: Patient Mode of Arrival: Ambulatory Location: Left Extremity Location: Knee Timing: Weeks Prehospital treatment: None Severity: Moderate Hand Dominance: Right Mechanism: Spontaneous Circumstances: Spontaneous Onset of Symptoms: Spontaneous Symptoms: Swelling, Pain DVT Risk Factors: NONE Last Tetanus: Unknown Associated signs and symptoms: Knee pain Past Medical History PAST MEDICAL HISTORY: HTN Past Medical History (Other): Fatty liver Surgical History: Cholecystectomy, 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 KITCHEN History Family History Family History: Reviewed,noncontributory to illness, Unknown Social History Smoker: Non-Smoker Alcohol: Denies ETOH Use Drugs: Denies Drug Use Lives In: Home Constitutional: denies: chills, diaphoresis, fatigue, fever, malaise, sweats, weakness, others EENTM: denies: blurred vision, double vision, ear bleeding, ear discharge, ear drainage, ear pain, ear ringing, eye pain, eye redness, hearing loss, mouth pain, mouth swelling, nasal discharge, nose bleeding, nose congestion, nose pain, photophobia, tearing, throat pain, throat swelling, voice changes, others Respiratory: denies: cough, hemoptysis, orthopnea, SOB at rest, shortness of breath, SOB with excertion, stridor, wheezing, others Cardiovascular: denies: chest pain, dizzy spells, diaphoresis, Dyspnea on exertion, edema, irregular heart beat, left arm pain, lightheadedness, palpitations, PND, syncope, others Gastrointestinal: denies: abdomen distended, abdominal pain, blood streaked bowels, constipated, diarrhea, dysphagia, difficulty swallowing, hematemesis, melena, nausea, poor appetite, poor fluid intake, rectal bleeding, rectal pain, vomiting, others Genitourinary: denies: abnormal vagina bleeding, burning, dyspareunia, dysuria, flank pain, frequency, hematuria, incontinence, pain, , vagina discharge , urgency, others Neurological: denies: dizziness, fainting, headache, left sided numbness, left sided weakness, numbness, paresthesia, pre-existing deficit, right sided numbness, right sided weakness, seizure, speech problems, tingling, tremors, weakness, others Musculoskeletal: reports: others (Knee pain); denies: back pain, gout, joint pain, joint swelling, muscle pain, muscle stiffness, neck pain Integumetry: denies: bruises, change in color, change in hair/nails, dryness, laceration, lesions, lumps, rash, wounds, others Allergic/Immunocompromised: denies: Difficulty Healing, Frequent Infections, Hives, Itching, others Hematologic/Lymphatic: denies: anemia, blood clots, easy bleeding, easy bruising, swollen glands, others Endocrine: denies: excessive hunger, excessive sweating, excessive thirst, excessive urination, flushing, intolerance to cold, intolerance to heat, unexplained weight gain, unexplained weight loss, others Psychiatric: denies: anxiety, bipolar disorder, depression, hopeless, panic disorder, schizophrenia, sleepless, suicidal, others All Other Systems: Reviewed and Negative Physical Exam General Appearance: No Apparent Distress, Normal HEENT: Normal ENT Inspection, Pharynx Normal, TMs Normal Neck: Full Range of Motion, Non-Tender, Normal, Normal Inspection Respiratory: Chest Non-Tender, Lungs Clear, No Accessory Muscle Use, No Respiratory Distress, Normal Breath Sounds Cardiovascular: No Edema, No JVD, No Murmur, No Gallop, Normal Peripheral Pulses, Regular Rate/Rhythm Breast Exam: Deferred Gastrointestinal: No Organomegaly, Non Tender, No Pulsatile Mass, Normal Bowel Sounds, Soft Genitalia: Deferred Pelvic: Deferred Rectal: Deferred Extremities: No calf tenderness, Normal capillary refill, Normal inspection, Normal range of motion, Non-tender, No pedal edema Musculoskeletal : Apperance: Normal Neurologic: Alert, family resource specialist II-XII nml as Tested, No Motor Deficits, Normal Affect, Normal Mood, No Sensory Deficits Cerebellar Function: Normal Reflexes: Normal Skin: Dry, Normal Color, Warm Lymphatic: No Adenopathy Was a procedure done? Was a procedure done?: No Differential Diagnosis EXT Differential Diagnosis: Sprain X-Ray, Labs, Meds, VS Vital Signs Date Time Temp Pulse Resp B/P (MAP) Pulse Ox O2 Delivery O2 Flow Rate FiO2 08/08/25 09:07 98.2 72 18 117/62 95 98.2 X-Ray, Labs, Meds, VS Comment 68-year-old female presents to the ER with a chief complaint of hip pain. Patient arrives alert and oriented, ABC's intact, afebrile, vital signs stable, saturating well in room air Diagnostic imaging ordered by me and results interpreted by radiology : X-ray Prescribed NSAIDs for the management of acute knee pain. Recommend light walking under the sun for 30 minutes a day Avoiding running jogging high-impact activities Stretch as tolerated Ice 3x/day for 5 minutes Wear knee brace for stability as needed, elevate leg swelling aggravated Additional MDM Review of External, Non-ED records: External records reviewed. Discussion with independent historian (EMS, family) history obtained from the patient/parents (if applicable) at bedside Chronic conditions affecting care: None Social determinants of health affecting care: None Consideration of admission (observation or admission): I considered escalation of care to admission for this patient, however given the reassuring workup, the patient is safe for outpatient management. Discussion with the Radiology: No Tests considered but not performed: Prescription medication considered but not given: 12 lead EKG interpretation: Time of 1ST Reevaluation: 14:12 Reevaluation 1ST: Unchanged Patient Education/Counseling: Diagnosis, Treatment, Prognosis Family Education/Counseling: No Family Present Departure 1 Departure Time of Disposition: 14:12 Impression: Primary Impression: Internal derangement of left knee Disposition: 01 HOME / SELF CARE / HOMELESS Condition: Stable e-Prescriptions Tramadol HCl (Tramadol HCl) 50 Mg Tab 50 MG PO Q8HP PRN for 10 Days, #30 TAB 0 Refills Prov: EMILEE JACKSON NP 08/08/25 Critical Care Note Critical Care Time?: No Stability Stability form required: No Heart Score Heart Score: Heart Score Response (Comments) Value History N/A 0 EKG N/A 0 Age N/A 0 Risk Factors N/A 0 Troponin N/A 0 Total 0 I personally scribed for EMILEE JACKSON NP ([email or web address]) on 08/08/25 at 15:35. Electronically submitted by Valentino Hickman ([email or web address]). EMILEE JACKSON NP Aug 08, 2025 14:34
== END 2025-08-08 14:37 | disposition home or self-care (01) ==
LOC: ER 09:01
DX: M23.92 Unspecified internal derangement of left knee (principal); I10 Essential (primary) hypertension; Z90.49 Acquired absence of other specified parts of digestive tract; Z79.899 Other long term (current) drug therapy
CPT/HCPCS: 73562

== ENCOUNTER 2025-11-05 09:10 | Emergency (ER) | payer MEDICAID ==
[~2025-11-05] VITALS: Ht 165.1 cm; Wt 144.0 kg
[~2025-11-05 09:10] MED LIST changes: +TRAM-626 PO
[2025-11-05 09:54] LABS: Urine Budding Yeast OCCASIONAL /hpf (None Seen); Urine Protein, UAD Negative (Negative)
[2025-11-05 09:57] LABS: Chloride 102 mmol/L (98-107); Potassium 3.8 mmol/L (3.5-5.1); Sodium 140 mmol/L (136-145)
[2025-11-05 09:58] LABS: Anion Gap 11 (5-15); Calcium 9.3 mg/dL (8.7-10.4); Carbon Dioxide 27 mmol/L (20-31)
[2025-11-05 09:59] LABS: Hematocrit 39.0 % (36.0-46.0); Hemoglobin 12.9 g/dL (12.2-16.2); Mean Corpuscular Hemoglobin 25.6 pg (28.0-32.0); Mean Corpuscular Volume 77.5 fL (80.0-100.0); Nucleated Red Blood Cells % 0.0 %
[2025-11-05 10:03] LABS: BUN/Creatinine Ratio 9.6 (10.0-20.0)
[2025-11-05 10:06] LABS: Blood Urea Nitrogen 7 mg/dL (9-23); Glucose 131 mg/dL (74-106)
--- NOTE | 2025-11-05 10:39 | ED.PDOC ---
General HPI Comments 50 y.o female with PMHx of HTN, presents to the ED for a chief complaint of mid back pain radiating to her right flank that started 3-4 days ago. Patient reports pain is constant and sharp. She took Tramadol yesterday in which she had pain relief however pain presented again today. She denies any nausea, vomiting, diarrhea, fever, chills, recent twisting, pulling sensation or heavy lifting. Chief Complaint: Urinary Time Seen by MD: 10:28 Primary Care Provider: WILL Reviewed notes: Nurses Notes, Medications, Allergies Allergies: Coded Allergies: NO KNOWN ALLERGIES (Unverified , 04/05/22) Home Meds Active Scripts Tramadol HCl (Tramadol HCl) 50 Mg Tab, 50 MG PO Q8HP PRN for 10 Days, #30 TAB 0 Refills Prov:EMILEE JACKSON NP 08/08/25 Ibuprofen (Ibuprofen) 800 Mg Tab, 1 TAB PO TID, #30 TAB Prov:RJ BARCENAS 03/25/25 Magnesium Hydroxide (Milk of Magnesia 400 mg/5Ml) 1 Marlen Marlen, 1 MARLEN PO BID PRN for 10 Days, #100 ML Prov:LAMBERTO HERNANDEZ MD 11/19/24 Diclofenac Sodium (Topical) (Voltaren Arthritis Pain) 1 % Gel, 1 % EX QID for 30 Days, #50 GRAMS 0 Refills Prov:EMILEE JACKSON NP 11/25/23 Acetaminophen (Acetaminophen) 500 Mg Tab, 1000 MG PO TIDP PRN for 30 Days, #180 TAB 0 Refills Prov:EMILEE JACKSON NP 11/25/23 Meloxicam (Meloxicam) 15 Mg Tab, 15 MG PO DAILY for 30 Days, #30 TAB 0 Refills Prov:EMILEE JACKSON NP 11/25/23 Prednisone (Prednisone) 20 Mg Tab, 40 MG PO DAILY, #20 MG Prov:RJ BARCENAS 04/16/23 Ibuprofen (Ibuprofen) 800 Mg Tab, 1 TAB PO TID, #30 TAB Prov:RJ BARCENAS 04/16/23 Naproxen (Naproxen) 500 Mg Tab, 500 MG PO BID, #30 TAB Prov:RJ BARCENAS 04/05/22 Prednisone (Prednisone) 20 Mg Tab, 60 MG PO DAILY for 5 Days, #15 MG Prov:RJ BARCENAS 04/05/22 Information Source: Patient Mode of Arrival: Ambulatory Severity: Moderate Timing: Days (3-4) Duration: Since onset Onset: Spontaneous Symptoms: None History of: None Location: (R) Flank Modifying factors: None associated signs and symptoms: Flank Pain, Back Pain Past Medical History PAST MEDICAL HISTORY: HTN Surgical History: Cholecystectomy, OFFICE REP History: No Pertinent OFFICE REP History Family History Family History: Reviewed,noncontributory to illness, Unknown Social History Smoker: Non-Smoker Alcohol: Denies ETOH Use Drugs: Denies Drug Use Lives In: Home Constitutional: denies: chills, diaphoresis, fatigue, fever, malaise, sweats, weakness, others EENTM: denies: blurred vision, double vision, ear bleeding, ear discharge, ear drainage, ear pain, ear ringing, eye pain, eye redness, hearing loss, mouth pain, mouth swelling, nasal discharge, nose bleeding, nose congestion, nose pain, photophobia, tearing, throat pain, throat swelling, voice changes, others Respiratory: denies: cough, hemoptysis, orthopnea, SOB at rest, shortness of breath, SOB with excertion, stridor, wheezing, others Cardiovascular: denies: chest pain, dizzy spells, diaphoresis, Dyspnea on exertion, edema, irregular heart beat, left arm pain, lightheadedness, palpitations, PND, syncope, others Gastrointestinal: denies: abdomen distended, abdominal pain, blood streaked bowels, constipated, diarrhea, dysphagia, difficulty swallowing, hematemesis, melena, nausea, poor appetite, poor fluid intake, rectal bleeding, rectal pain, vomiting, others Genitourinary: reports: flank pain; denies: abnormal vagina bleeding, burning, dyspareunia, dysuria, frequency, hematuria, incontinence, pain, , vagina discharge, urgency, others Neurological: denies: dizziness, fainting, headache, left sided numbness, left sided weakness, numbness, paresthesia, pre-existing deficit, right sided numbness, right sided weakness, seizure, speech problems, tingling, tremors, weakness, others Musculoskeletal: reports: back pain; denies: gout, joint pain, joint swelling, muscle pain, muscle stiffness, neck pain, others Integumetry: denies: bruises, change in color, change in hair/nails, dryness, laceration, lesions, lumps, rash, wounds, others Allergic/Immunocompromised: denies: Difficulty Healing, Frequent Infections, Hives, Itching, others Hematologic/Lymphatic: denies: anemia, blood clots, easy bleeding, easy bruising, swollen glands, others Endocrine: denies: excessive hunger, excessive sweating, excessive thirst, excessive urination, flushing, intolerance to cold, intolerance to heat, unexplained weight gain, unexplained weight loss, others Psychiatric: denies: anxiety, bipolar disorder, depression, hopeless, panic disorder, schizophrenia, sleepless, suicidal, others All Other Systems: Reviewed and Negative Physical Exam General Appearance: No Apparent Distress, Normal HEENT: Normal ENT Inspection, Pharynx Normal, TMs Normal Neck: Full Range of Motion, Non-Tender, Normal, Normal Inspection Respiratory: Chest Non-Tender, Lungs Clear, No Accessory Muscle Use, No Respiratory Distress, Normal Breath Sounds Cardiovascular: No Edema, No JVD, No Murmur, No Gallop, Normal Peripheral Pulses, Regular Rate/Rhythm Breast Exam: Deferred Gastrointestinal: No Organomegaly, Non Tender, No Pulsatile Mass, Normal Bowel Sounds, Soft Genitalia: Deferred Pelvic: Deferred Rectal: Deferred Extremities: No calf tenderness, Normal capillary refill, Normal inspection, Normal range of motion, Non-tender, No pedal edema Musculoskeletal : Apperance: Normal Neurologic: Alert, gripper installer II-XII nml as Tested, No Motor Deficits, Normal Affect, Normal Mood, No Sensory Deficits Cerebellar Function: Normal Reflexes: Normal Skin: Dry, Normal Color, Warm Lymphatic: No Adenopathy Was a procedure done? Was a procedure done?: No Differential Diagnosis Kidney stone (Female): DJD, Hepatitis, Musculoskeletal pain, Pancreatitis, Pyelonephritis, Strain, Urolithiasis X-Ray, Labs, Meds, VS Vital Signs Date Time Temp Pulse Resp B/P (MAP) Pulse Ox O2 Delivery O2 Flow Rate FiO2 11/05/25 11:06 98.2 64 18 166/86 (112) 94 98.2 11/05/25 09:22 98.1 69 18 147/86 95 98.1 Lab Test 11/05/25 09:44 11/05/25 09:35 Range/Units White Blood Count 9.2 4.4-10.8 10^3/uL Red Blood Count 5.03 4.0-5.20 10^6/uL Hemoglobin 12.9 12.2-16.2 g/dL Hematocrit 39.0 36.0-46.0 % Mean Corpuscular Volume 77.5 L 80.0-100.0 fL Mean Corpuscular Hemoglobin 25.6 L 28.0-32.0 pg Mean Corpuscular Hemoglobin Concent 33.0 32.0-36.0 g/dL Red Cell Distribution Width 14.5 H 11.8-14.3 % Platelet Count 340 140-450 10^3/uL Mean Platelet Volume 7.4 6.9-10.8 fL Neutrophils (%) (Auto) 72.4 37.0-80.0 % Lymphocytes (%) (Auto) 20.6 10.0-50.0 % Monocytes (%) (Auto) 3.4 0.0-12.0 % Eosinophils (%) (Auto) 2.8 0.0-7.0 % Basophils (%) (Auto) 0.8 0.0-2.0 % Neutrophils # (Auto) 6.7 1.6-8.6 10 ^3/uL Lymphocytes # (Auto) 1.9 0.4-5.4 10 ^3/uL Monocytes # (Auto) 0.3 0-1.3 10 ^3/uL Eosinophils # (Auto) 0.3 0-0.8 10 ^3/uL Basophils # (Auto) 0.1 0-0.2 10 ^3/uL Nucleated Red Blood Cells 0.0 % Sodium Level 140 136-145 mmol/L Potassium Level 3.8 3.5-5.1 mmol/L Chloride Level 102 98-107 mmol/L Carbon Dioxide Level 27 20-31 mmol/L Anion Gap 11 5-15 Blood Urea Nitrogen 7 L 9-23 mg/dL Creatinine 0.73 0.550-1.02 mg/dL Glomerular Filtration Rate Calc 101 >90 mL/min BUN/Creatinine Ratio 9.6 L 10.0-20.0 Serum Glucose 131 H 74-106 mg/dL Calcium Level 9.3 8.7-10.4 mg/dL Urine Color Light-yellow Yellow Urine Clarity Clear Clear Urine pH 6.5 5.0-9.0 Urine Specific [place] 1.017 1.001-1.035 Urine Protein Negative Negative Urine Ketones Negative Negative Urine Blood Negative Negative /uL Urine Nitrite Negative Negative Urine Bilirubin Negative Negative Urine Urobilinogen Normal Negative mg/dL Urine Leukocyte Esterase Negative Negative /uL Urine RBC 1 0 - 4 /hpf Urine Microscopic WBC < 1 0-5 /HPF Urine Squamous Epithelial Cells Few <5 /hpf Urine Bacteria None seen None Seen /hpf Urine Mucus Few None Seen Urine Yeast (Budding) Occasional None Seen /hpf Urine Glucose Normal Normal mg/dL Time of 1ST Reevaluation: 10:36 Reevaluation 1ST: Unchanged Patient Education/Counseling: Diagnosis, Treatment, Prognosis Family Education/Counseling: No Family Present SEPSIS Sepsis Screen Date sepsis recognized/suspect: Nov 05, 2025 Time Sepsis recognized/suspect: 923 Recent Procedure: No On Antibiotic Therapy: No Respiratory Rate >20: No Heart Rate >90: No Temp<36 C (96.8 F) or >38.3 C: No SBP <90 or MAP <65 mmHG: No New Acute Mental Status Change: No Is the patient on CPAP, BIPAP,: No Physician Orders Lumbar Spine 3 View (11/05/25 10:30) Chest Portable (11/05/25 10:30) Hydrocodone-Acet 5/325mg Tab ([place] 5/32 (11/05/25 12:15) Vital Signs Date Time Temp Pulse Resp B/P (MAP) Pulse Ox O2 Delivery O2 Flow Rate FiO2 11/05/25 11:06 98.2 64 18 166/86 (112) 94 98.2 11/05/25 09:22 98.1 69 18 147/86 95 98.1 Laboratory Tests Test 11/05/25 09:44 White Blood Count 9.2 10^3/uL (4.4-10.8) Departure 1 Departure Time of Disposition: 12:13 (Patient's workup is benign. She had likely has musculoskeletal strain. We will discharge patient with outpatient follow up) Impression: Primary Impression: Musculoskeletal strain Disposition: HOME / SELF CARE / HOMELESS Condition: Stable Additional Instructions: You likely have musculoskeletal strain. Your workup today was benign. For pain you can take the followinam: Ibuprofen 400mg with food Noon: Acetaminophen 1000mg 4pm: Ibuprofen 400mg with food 8pm: Acetaminophen 1000mg You should follow up with your regular doctor within one week to ensure you are doing better. If your symptoms worsen or you have any other concerns then please return to the ER. Discharged With: Self Critical Care Note Critical Care Time?: No Stability Stability form required: No I personally scribed for KATELYNN TOMLINSON MD ([facility]) on 11/05/25 at 10:39. Electronically submitted by Kassandra Mckeon ([facility]). KATELYNN TOMLINSON MD Nov 05, 2025 10:39
--- NOTE | 2025-11-05 11:05 | DVH ---
CLINICAL INFORMATION: Cough. TECHNIQUE: Single AP portable chest radiograph was obtained. COMPARISON: None FINDINGS: Lungs: Mild elevation of the right hemidiaphragm. No focal consolidation, pneumothorax, or pleural effusion visualized. Cardiac: Heart size is within normal limits. Pulmonary vasculature: Unremarkable. Mediastinum/gume: Unremarkable. Bones: No acute osseous abnormality identified. Other: No other significant findings. IMPRESSION: No evidence of acute disease in the chest.
--- NOTE | 2025-11-05 11:11 | DVH ---
CLINICAL INFORMATION: Back pain. TECHNIQUE: 3 views of the lumbar spine were obtained. COMPARISON: None FINDINGS: Increased lumbar lordosis. Mild grade 1 anterolisthesis of L4 on L5. Minimal retrolisthesis of L2 on L3. Vertebral body heights are maintained. Posterior elements are intact. No evidence of acute fracture. Mild disc space narrowing at L5-S1 with minimal endplate spurring. Paraspinal soft tissues are grossly unremarkable. IMPRESSION: 1. No radiographic evidence of acute fracture. 2. Increased lumbar lordosis with mild anterolisthesis of L4 on L5 and minimal retrolisthesis of L2 on L3. 3. Degenerative disc disease at L5-S1 as described above.
[2025-11-05] MEDS: HYDROcodone-ACET 5/325MG TAB PO ONE (12:30)
[2025-11-05 13:18] VITALS: BP 166/79; PULSE 67; RESP 18; TEMP 98; O2SAT 96
== END 2025-11-05 13:25 | disposition home or self-care (01) ==
LOC: ER 09:10
DX: S39.012A Strain of muscle, fascia and tendon of lower back, initial encounter (principal); I10 Essential (primary) hypertension; Z79.899 Other long term (current) drug therapy; Z98.890 Other specified postprocedural states; Z90.49 Acquired absence of other specified parts of digestive tract; Z79.1 Long term (current) use of non-steroidal anti-inflammatories (NSAID); Z79.52 Long term (current) use of systemic steroids; X58.XXXA Exposure to other specified factors, initial encounter; Y93.89 Activity, other specified; Y92.89 Other specified places as the place of occurrence of the external cause; Y99.8 Other external cause status
CPT/HCPCS: 36415; 71045; 72100; 80048; 81001; 85025